=== PATIENT | female | born 1990 | race Two or more races ===

== ENCOUNTER 2019-07-27 17:40 | Emergency (ER) | payer MEDICARE, OTHER ==
[~2019-07-27] VITALS: Ht 170.2 cm; Wt 65.0 kg
--- NOTE | 2019-07-27 18:00 | NUR ---
Patient does admit to falling multiples times but currently denies pain. Denies hitting head. Denies LOC.
[2019-07-27 18:02] VITALS: BP 130/76
--- NOTE | 2019-07-27 18:49 | NUR ---
REPORT TO JENI DUDLEY.
--- NOTE | 2019-07-27 18:53 | NUR ---
PT TO CT AT THIS TIME.
--- NOTE | 2019-07-27 19:02 | NUR ---
PT BACK FROM CT.
--- NOTE | 2019-07-27 19:28 | NUR ---
ALL RESULTS BACK AT THIS TIME CHART UP FOR RECHECK
== END 2019-07-27 20:45 | disposition home or self-care (01) ==
LOC: ED 20:20
DX: S00.01XA Abrasion of scalp, initial encounter (principal); R41.3 Other amnesia; F10.229 Alcohol dependence with intoxication, unspecified; F17.200 Nicotine dependence, unspecified, uncomplicated; Y90.9 Presence of alcohol in blood, level not specified; W01.0XXA Fall on same level from slipping, tripping and stumbling without subsequent striking against object, initial encounter; Y93.01 Activity, walking, marching and hiking; Y92.89 Other specified places as the place of occurrence of the external cause; Y99.8 Other external cause status
CPT/HCPCS: 70450; 99284